=== PATIENT | female | born 1950 | race Caucasian/White ===

== ENCOUNTER 2021-09-18 09:39 | Emergency (ER) | payer MEDICARE, BC ==
[~2021-09-18] VITALS: Ht 165.1 cm; Wt 62.6 kg
[2021-09-18] MEDS ORDERED: TRAZODONE HCL50 MG NG (09:53)
[2021-09-18] MEDS ORDERED: PAROXETINE HCL40 MG PO (09:53)
== END 2021-09-18 15:18 | disposition home or self-care (01) ==
LOC: ED 09:39
DX: S09.90XA Unspecified injury of head, initial encounter (principal); V89.2XXA Person injured in unspecified motor-vehicle accident, traffic, initial encounter
CPT/HCPCS: 70450; 71101

== ENCOUNTER 2021-09-23 09:28 | Emergency (ER) | payer OTHER, MEDICARE, BC ==
[~2021-09-23] VITALS: Ht 165.1 cm; Wt 62.6 kg
[~2021-09-23 09:28] MED LIST: PAROXETINE HCL40 MG PO; TRAZODONE HCL50 MG NG
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
--- NOTE | 2021-09-24 07:02 | EKG ---
[facility] [address] [facility] [place], [place] [address] Signed Normal sinus rhythm Normal ECG No previous ECGs available Confirmed by DEX RAYMOND MD ([id number] on 09/24/2021 7:02:21 AM Electronically Signed By: DEX RAYMOND MD 09/24/21 0702 PATIENT NAME: ZAYFAIZA KARIS Electrocardiogram DATE OF : 48 PHYSICIAN: DEX RAYMOND MD REPORT #: [id number] REPORT IS CONFIDENTIAL AND NOT TO BE RELEASED WITHOUT AUTHORIZATION
== END 2021-09-23 12:22 | disposition home or self-care (01) ==
LOC: ED 09:28
DX: S22.20XA Unspecified fracture of sternum, initial encounter for closed fracture (principal); Z85.3 Personal history of malignant neoplasm of breast; Z88.0 Allergy status to penicillin; Z88.5 Allergy status to narcotic agent; Z88.1 Allergy status to other antibiotic agents; Z79.899 Other long term (current) drug therapy; V89.2XXA Person injured in unspecified motor-vehicle accident, traffic, initial encounter
CPT/HCPCS: 71120; 93005; 93010; 99284-25

== ENCOUNTER 2022-02-02 07:35 | Day surgery (SDC) | payer MEDICARE, BC ==
[~2022-02-02] VITALS: Ht 165.1 cm; Wt 61.8 kg
--- NOTE | 2022-02-02 09:49 | NUR ---
02/02/22 0949 Génseis Lomax 0927-PATIENT ARRIVED TO PACU ON RA RR EVEN 97%. CO2 43 PATIENT LAYING LEFT LATERAL ABDOMEN SOFT. PATIENT REACTIVE TO VERBAL STIMULI REMAINS DROWSY. DENIES PAIN OR NAUSEA. IVF INFUSING. PATIENT CLOSES EYES.
--- NOTE | 2022-02-02 10:53 | NUR ---
RETURN SLEEPY. SITTING UP TALKING. REQUESTS APPLE JUICE. GIVEN. AT BEDSIDE.
--- NOTE | 2022-02-02 11:12 | NUR ---
HAS DRANK GLASS APPLE JUICE AND STATES SHES READY TO GO HOME.
--- NOTE | 2022-02-03 08:40 | OR ---
[facility] [address] [place], [place] [address] Signed DATE OF OPERATION: 02/02/2022 SURGEON: Marie Mayes MD PREOPERATIVE DIAGNOSES: 1. Screening. 2. History of colostomy with reversal. 3. Anal sphincteroplasty. POSTOPERATIVE DIAGNOSES: 1. Anastomosis at 22 cm. 2. Minimal sigmoid diverticulosis. 3. Suture anterior midline anal sphincters. 4. A 3 mm polyps at 52 cm, 22, and 3 cm. PROCEDURE: Colonoscopy with cold biopsy. ESTIMATED BLOOD LOSS: None. INDICATIONS: Faiza is a 71-year-old female, asked to see me for a routine followup screening colonoscopy. She underwent screening colonoscopy at the age of 51 in 1999 and again at age 61 in 2009, both at the [facility] in [place], [place]. She has had both tests were negative. 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 Her colorectal surgeon Dr. Julian Angelo performed her overlapping sphincteroplasty and repair of the rectocele. She developed an infection. She underwent a laparoscopic colostomy and then later had it reversed with good results. She said her stool seems to be a bit ribbon shaped after the sphincteroplasty. Otherwise, she is doing well. 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 She gives no family history of colon cancer or polyps. In the office, I gave her a pamphlet on colonoscopy. We discussed the nature of the test. She understands there is risk including, but not limited to gas bloating, crampy abdominal pain, bleeding, perforation requiring surgery, and missed diagnosis. We also reviewed the need for IV conscious sedation. She expressed understanding and wished to proceed. DESCRIPTION OF PROCEDURE: Faiza was taken into our endoscopy suite and placed in the left lateral decubitus position. She was given 4 mg of Versed and 100 mcg of fentanyl to cover the case. Electronically Signed By: MARIE MAYES MD 02/03/22 0840 PATIENT NAME: FAIZA COLLAZO OPERATIVE REPORT DATE OF : 48 REPORT #: [id number] PHYSICIAN: MARIE MAYES MD PCP: MARCELINA CARVAJAL MD REPORT IS CONFIDENTIAL AND NOT TO BE RELEASED WITHOUT AUTHORIZATION [facility] [address] [place] [id number] Signed Digital rectal exam was performed and she has no external hemorrhoids. I can feel suture in the anterior midline. I can see Dictation Ends Here Marie Mayes MD ALB/MODL /[id number] Copies: ~ Electronically Signed By: MARIE MAYES MD 02/03/22 0840 PATIENT NAME: FAIZA COLLAZO OPERATIVE REPORT DATE OF : 48 REPORT #: [id number] PHYSICIAN: MARIE MAYES MD PCP: MARCELINA CARVAJAL MD REPORT IS CONFIDENTIAL AND NOT TO BE RELEASED WITHOUT AUTHORIZATION
--- NOTE | 2022-02-03 08:40 | OR ---
[facility] [address] [place], [place] [address] Signed DATE OF OPERATION: 02/02/2022 SURGEON: Marie Mayes MD PREOPERATIVE DIAGNOSES: 1. Screening. 2. History of laparoscopic colostomy with reversal. 3. Anal sphincteroplasty. POSTOPERATIVE DIAGNOSES: 1. Anastomosis at 22 cm. 2. Minimal sigmoid diverticulosis. 3. Suture anterior midline anus/sphincter. 4. 3 mm polyps at 52 cm, 22 cm and 3 cm. PROCEDURE: Colonoscopy with cold biopsy. ESTIMATED BLOOD LOSS: None. INDICATIONS: Faiza is a 71-year-old female, asked to see me for routine followup screening colonoscopy. She underwent screening colonoscopies at the age 51 in 1999 and again at age 61 in 2009 at the [facility] in [place], [place]. She said both tests were negative. 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 Dr. Julian Angelo performed the overlapping sphincteroplasty and repair of her rectocele. She developed an infection postoperatively. She therefore underwent laparoscopic colostomy and then reversal with good results. She said her stool now seems to be ribbon-shaped after the sphincteroplasty. Otherwise, she is doing well. She told me the one pudendal nerve only functions about 10%. She has no family history of colon cancer or polyps. In the office, I gave her a pamphlet on colonoscopy. We had reviewed the nature of the test. There is a risk including, but not limited to gas bloating, crampy abdominal pain, bleeding, perforation requiring surgery and missed diagnosis. We also reviewed the need for IV conscious sedation. She had expressed understanding and wished to proceed. PROCEDURE NOTE: Faiza was taken into our endoscopy suite and placed in the left lateral decubitus position. She was given 4 mg of Versed and 100 mcg of fentanyl to cover the case. A Electronically Signed By: MARIE MAYES MD 02/03/22 0840 PATIENT NAME: FAIZA COLLAZO OPERATIVE REPORT DATE OF : 48 REPORT #: [id number] PHYSICIAN: MARIE MAYES MD PCP: VIV CARVAJAL MD REPORT IS CONFIDENTIAL AND NOT TO BE RELEASED WITHOUT AUTHORIZATION [facility] [address] [place], [place] [address] Signed digital rectal exam was performed and I can feel the suture and scar in the anterior midline of the sphincters. I can see the scar in the posterior midline of the vaginal introitus and just a small scar in the left anterior position. The rest of the sphincter was intact and quite soft and pliable. No masses noted. The adult colonoscope had been introduced and advanced under direct visualization of the camera. Her prep was quite excellent. We could easily see the appendiceal orifice and the ileocecal valve. The scope was then slowly withdrawn. She has just minimal sigmoid diverticulosis. They are minimal to moderate in size, few in number, and scattered about. We could see staple line and some silk suture at 22 cm. It is widely patent and very healthy without any ulceration or granulation tissue. The rectum was unremarkable. We did remove three very small polyps as listed above with the help of cold biopsy forceps. Upon retroflexion of scope, she really has no additional pathology around the anus other than that tiny polyp. After this, the gas was suctioned out and the colonoscope removed. Faiza tolerated the procedure quite well. RECOMMENDATIONS: I will see Faiza back in my office in 7 to 14 days to review her results. I suspect she will be on the 10 year rotation. Marie Mayes MD ALB/MODL /[id number] cc: MD Viv Wan MD Mark Whiteford, MD Copies: MARIE MAYES MD ~ Electronically Signed By: MARIE MAYES MD 02/03/22 0840 PATIENT NAME: FAIZA COLLAZO OPERATIVE REPORT DATE OF : 48 REPORT #: [id number] PHYSICIAN: MARIE MAYES MD PCP: VIV CARVAJAL MD REPORT IS CONFIDENTIAL AND NOT TO BE RELEASED WITHOUT AUTHORIZATION
--- NOTE | 2022-02-06 17:18 | PATH ---
[facility] [address] [place], [place] [address] Signed SPECIMEN(S): A POLYP AT 52 CM SPECIMEN(S): B POLYP AT 22 CM SPECIMEN(S): C POLYP AT 3 CM SPECIMEN SOURCE: A. POLYP AT 52 CM B. POLYP AT 22 CM C. POLYP AT 3 CM CLINICAL HISTORY: Pre: 1999 and 2009 (negative colonoscopies) FINAL PATHOLOGIC DIAGNOSIS: A. Polyp at 52 cm: - Hyperplastic polyp (two fragments). B. Polyp at 22 cm: - Hyperplastic polyp (one fragment). C. Polyp at 3 cm: - Hyperplastic polyp (one fragment). JVR:nori:C2NR MICROSCOPIC EXAMINATION: Histologic sections of all submitted blocks are examined by light microscopy. These findings, together with the gross examination, support the pathologic diagnosis. GROSS DESCRIPTION: Three specimens are received in three containers, labeled "CN." A. The specimen, labeled "CN, #1," and designated on the requisition "polypectomy 52 cm," is received in formalin and consists of three elongated suárez soft tissue fragments that measure 0.2-0.7 cm in greatest dimension. The specimen is entirely submitted in cassette (A1). B. The specimen, labeled "CN, #2," and designated on the requisition "polypectomy 22 cm," is received in formalin and consists of one suárez soft tissue fragment that measures 0.4 cm in greatest dimension. The specimen is entirely submitted in cassette (B1). C. The specimen, labeled "CN, #3," and designated on the requisition "polypectomy 3 cm," is received in formalin and consists of one suárez soft tissue fragment that measures 0.4 cm in greatest dimension. The specimen is entirely submitted in cassette (C1). AI (under the direct supervision of a pathologist) PATIENT NAME: FAIZA COLLAZO PATHOLOGY DATE OF : 48 REPORT #: [id number] PHYSICIAN: STEPHANIE SOARES PCP: MARCELINA CARVAJAL MD REPORT IS CONFIDENTIAL AND NOT TO BE RELEASED WITHOUT AUTHORIZATION [facility] [address] [place], [place] [address] Signed The Gross Description was prepared using a voice recognition system. The report was reviewed for accuracy; however, sound-alike word errors, addition and/or deletions may occur. If there is any question about this report, please contact Client Services. PERFORMING LABORATORY: The technical component was performed by [facility], [address] [place] [address] (CLIA# [id number]). Professional interpretation was performed by [facility] - [facility], [address] [place] [id number] (CLIA#: [id number]). Diagnostician: Bruce Martinez MD Pathologist Electronically Signed 02/06/2022 Copies: ~ PATIENT NAME: FAIZA COLLAZO PATHOLOGY DATE OF : 48 REPORT #: [id number] PHYSICIAN: STEPHANIE SOARES PCP: MARCELINA CARVAJAL MD REPORT IS CONFIDENTIAL AND NOT TO BE RELEASED WITHOUT AUTHORIZATION
== END 2022-02-02 11:15 | disposition home or self-care (01) ==
LOC: DS 07:35 → OPS 07:35 → DS 09:00 → OPS 11:15
PROVIDERS: ATTEND Colon & Rectal Surgery
PROC: 0DBE8ZX Excision of Large Intestine, Via Natural or Artificial Opening Endoscopic, Diagnostic (ICD-10-PCS; principal; 2022-02-02 09:00)
DX: Z12.11 Encounter for screening for malignant neoplasm of colon (principal); F41.9 Anxiety disorder, unspecified; Z88.0 Allergy status to penicillin; Z88.1 Allergy status to other antibiotic agents; K57.30 Diverticulosis of large intestine without perforation or abscess without bleeding; N81.6 Rectocele; K63.5 Polyp of colon
CPT/HCPCS: 88305; 99153; G0500; J2250; J3010; J7121